=== PATIENT | male | born 2000 | race Caucasian/White ===

== ENCOUNTER → 2024-05-31 | Outpatient (CLI) | payer OTHER ==
[~2024-05-31] MED LIST: ISOVUE-370 76% 100ML VIAL As Ordered ONE
== END ==
LOC: M RAD 13:12
PROVIDERS: ATTEND Urology
DX: N50.89 Other specified disorders of the male genital organs (principal); R91.8 Other nonspecific abnormal finding of lung field
CPT/HCPCS: 71260; 74177; Q9967

== ENCOUNTER 2024-06-18 09:41 | Day surgery (SDC) | payer OTHER ==
[~2024-06-18] VITALS: Ht 152.4 cm; Wt 95.5 kg
[2024-06-18] MEDS ORDERED: LR 1,000 ML IV SCH ×2 (09:55→13:00)
[2024-06-18] MEDS ORDERED: fentaNYL 100 MCG/2 ML INJECTION As Ordered ONE (11:20)
[2024-06-18] MEDS ORDERED: KETOROLAC 60MG 2ML VIAL As Ordered ONE (11:20)
[2024-06-18] MEDS ORDERED: LIDOCAINE 2% 100MG/5ML SDV (FOR ANES.) As Ordered ONE (11:20)
[2024-06-18] MEDS ORDERED: ACETAMINOPHEN 1000MG 100ML IV BAG As Ordered ONE (11:20)
[2024-06-18] MEDS ORDERED: propofoL 200 MG/20 ML VIAL As Ordered ONE (11:20)
[2024-06-18] MEDS ORDERED: ONDANSETRON 4MG 2ML VIAL As Ordered ONE (11:20)
[2024-06-18] MEDS ORDERED: MIDAZOLAM INJ 2MG/2ML VIAL As Ordered ONE (11:21)
[2024-06-18] MEDS: ceFAZolin SOD 2 GM in IV 1 EA IV ONE (12:20)
[2024-06-18] MEDS ORDERED: dexmedeTOMIDine (4MCG/ML)200MCG/50ML BTL (PRECEDEX) As Ordered ONE (12:25)
[2024-06-18] MEDS ORDERED: GLYCOPYRROLATE INJ 0.2 MG/ML 2 ML VIAL As Ordered ONE (12:30)
[2024-06-18] MEDS: LIDOCAINE 2% MDV 20ML VIAL As Ordered ONE (12:54)
[2024-06-18] MEDS ORDERED: ONDANSETRON 4MG 2ML VIAL IV PRN (13:00)
[2024-06-18] MEDS ORDERED: oxyCODONE 5MG TAB PO PRN (13:00)
[2024-06-18] MEDS ORDERED: fentaNYL 100 MCG/2 ML INJECTION IV PRN (13:00)
[2024-06-18] MEDS ORDERED: HYDROMORPHONE HCL 0.5 MG/ 0.5 ML SYRINGE IV PRN (13:00)
[2024-06-18] MEDS ORDERED: HYDR-3713 PO (13:05)
[2024-06-18] MEDS ORDERED: CEPH500C PO (13:05)
[2024-06-18 14:00] VITALS: BP 132/91; TEMP 98.6; O2SAT 97
== END 2024-06-18 14:03 | disposition home or self-care (01) ==
LOC: M SDC 09:41
PROVIDERS: ATTEND Urology
DX: C62.91 Malignant neoplasm of right testis, unspecified whether descended or undescended (principal); F17.200 Nicotine dependence, unspecified, uncomplicated
CPT/HCPCS: 54530; 88309; J0131; J0665; J0690; J1100; J1596; J1885; J2250; J2405; J3010

== ENCOUNTER → 2024-07-04 | Outpatient (CLI) | payer OTHER ==
[~2024-07-04] VITALS: Ht 165.1 cm; Wt 95.0 kg
[~2024-07-04] MED LIST changes: +CEPH500C PO; +HYDR-3713 PO; -ISOVUE-370 76% 100ML VIAL As Ordered ONE; +LIDOCAINE 1% MDV 20ML VIAL As Ordered ONE; +MIDAZOLAM INJ 2MG/2ML VIAL As Ordered ONE; +NS 1,000 ML IV SCH; +ceFAZolin 2 GM/D5W 50 ML IV BAG As Ordered ONE; +fentaNYL 100 MCG/2 ML INJECTION As Ordered ONE
[2024-07-04 12:20] VITALS: TEMP 98
[2024-07-04] MEDS: ceFAZolin SOD 2 GM in IV 1 EA IV ONE (13:02)
[2024-07-04 14:30] VITALS: BP 126/74; O2SAT 98
== END ==
LOC: M IRPRO 12:07
PROVIDERS: ATTEND Dietitian, Registered
DX: C62.90 Malignant neoplasm of unspecified testis, unspecified whether descended or undescended (principal)
CPT/HCPCS: 36561; 99152; 99153; C1887; C1894; J0690; J1642; J2250; J3010

== ENCOUNTER → 2024-07-17 | Outpatient (CLI) | payer OTHER ==
[~2024-07-17] MED LIST changes: -LIDOCAINE 1% MDV 20ML VIAL As Ordered ONE; -MIDAZOLAM INJ 2MG/2ML VIAL As Ordered ONE; -NS 1,000 ML IV SCH; +PROHANCE 279.3MG/ML 15ML VIAL As Ordered ONE; +PROHANCE 279.3MG/ML 5ML VIAL As Ordered ONE; -ceFAZolin 2 GM/D5W 50 ML IV BAG As Ordered ONE; -fentaNYL 100 MCG/2 ML INJECTION As Ordered ONE
== END ==
LOC: M RAD 15:22
PROVIDERS: ATTEND Dietitian, Registered
DX: C62.90 Malignant neoplasm of unspecified testis, unspecified whether descended or undescended (principal)
CPT/HCPCS: 70553; A9576

== ENCOUNTER → 2024-07-19 | Outpatient (CLI) | payer OTHER ==
[~2024-07-19] MED LIST changes: -PROHANCE 279.3MG/ML 15ML VIAL As Ordered ONE; -PROHANCE 279.3MG/ML 5ML VIAL As Ordered ONE
== END ==
LOC: M CARPUL 13:43
PROVIDERS: ATTEND Internal Medicine Hematology & Oncology
DX: C62.91 Malignant neoplasm of right testis, unspecified whether descended or undescended (principal); R91.1 Solitary pulmonary nodule

== ENCOUNTER → 2024-08-03 | Outpatient (CLI) | payer OTHER | LOC: M RAD 07:28 | PROVIDERS: ATTEND Internal Medicine Pulmonary Disease | DX: Z87.09 Personal history of other diseases of the respiratory system (principal) ==

== ENCOUNTER 2024-09-10 10:54 | Emergency (ER) | payer OTHER ==
[~2024-09-10] VITALS: Ht 165.1 cm; Wt 99.2 kg
[~2024-09-10 10:54] MED LIST changes: +LIDO30CR18 TOP SA; +ONDA-84 PO; +PROC10TA5 PO
[2024-09-10] MEDS ORDERED: HYDR-4571 (11:08)
[2024-09-10 11:45] LABS: HEMATOCRIT 39.2 % (42.0-52.0); MEAN CORPUSCULAR HEMOGLOBIN 28.5 pg (27.0-33.0); MEAN CORPUSCULAR HGB CONC 35.7 g/dl (32.0-36.5); MEAN CORPUSCULAR VOLUME 79.8 fl (80.0-96.0); PLATELET COUNT, AUTOMATED 164 10^3/uL (150-450); RED BLOOD COUNT 4.91 10^6/uL (4.30-6.10); WHITE BLOOD COUNT 2.4 10^3/uL (4.0-10.0)
[2024-09-10 12:18] LABS: BLOOD UREA NITROGEN 11 MG/DL (9-23); CALCIUM LEVEL 9.1 MG/DL (8.5-10.1); CARBON DIOXIDE LEVEL 25 MMOL/L (20-31); CHLORIDE LEVEL 104 MMOL/L (98-107); CREATININE FOR GFR 1.09 MG/DL (0.70-1.30); GLOMERULAR FILTRATION RATE > 60.0 (>60); GLUCOSE, FASTING 109 MG/DL (60-100); POTASSIUM SERUM 3.9 MMOL/L (3.5-5.1); SODIUM LEVEL 139 MMOL/L (136-145)
[2024-09-10 12:46] LABS: ATYPICAL LYMPH 28 % (0-5); BASOPHILS 4 % (0-1); EOSINOPHILS 4 % (0-3); LYMPHOCYTES 44 % (16-44); MICROCYTOSIS 1+; MONOCYTES 13 % (0-5); NEUTROPHILS 5 % (28-66)
[2024-09-10 12:47] LABS: ANISOCYTOSIS 1+; PLATELET ESTIMATE NORMAL (NORMAL)
[2024-09-10 13:36] LABS: MONO REFLEX EBV COMP NEGATIVE (NEGATIVE)
[2024-09-10 14:33] LABS: ERYTHROCYTE SEDIMENTATION RATE 29 mm/hr (0-15)
[2024-09-10 14:57] LABS: C REACTIVE PROTEIN QUANTITATIV 4.55 MG/DL (<1.0)
[2024-09-10] MEDS: CIPROFLOXACIN 500MG TABLET PO ONE (15:18)
[2024-09-10] MEDS ORDERED: CIPR-249 PO (15:35)
[2024-09-10] MEDS: FILGRASTIM 480 MCG/0.8 ML SYRINGE **SC ADMINISTRATION ONLY SC SCH (15:56)
[2024-09-10] MEDS: SODIUM CHLORIDE 0.9% INJ 10 ML SYR IV PRN (15:59)
[2024-09-10 16:00] VITALS: BP 135/77; O2SAT 96
[2024-09-10 16:03] VITALS: TEMP 97
[2024-09-10 16:14] LABS: BILIRUBIN, URINE MANUAL NEGATIVE (NEGATIVE); BLOOD URINE MANUAL NEGATIVE (NEGATIVE); GLUCOSE, URINE (UA) MANUAL NEGATIVE (NEGATIVE); KETONE, URINE MANUAL NEGATIVE (NEGATIVE); LEUKOCYTE ESTERASE, URINE MAN NEGATIVE (NEGATIVE); NITRITE, URINE MANUAL NEGATIVE (NEGATIVE); SPECIFIC GRAVITY,URINE MANUAL 1.015 (1.002-1.035); UROBILINOGEN, URINE MANUAL NORMAL (NORMAL)
[2024-09-10 16:15] LABS: APPEARANCE, URINE MANUAL CLEAR (CLEAR); COLOR, URINE MANUAL LT YELLOW (YELLOW)
[2024-09-10 16:25] LABS: MUCUS, URINE SMALL AMOUNT (NEGATIVE); RBC, URINE NONE SEEN /hpf (0-3); SQUAMOUS EPITHELIAL CELL URINE SMALL AMOUNT /hpf (SMALL AMT)
[2024-09-11] MEDS ORDERED: SODIUM CHLORIDE 0.9% INJ 10 ML SYR IV SCH (09:00)
[2024-09-13 10:41] LABS: EBV AB TO NUCLEAR ANTIGEN < 18.00 U/mL (<18.00); EBV VIRAL CAPSID AG IGG < 18.00 U/mL (<18.00); EBV VIRAL CAPSID AG IGM < 36.00 U/mL (<36.00)
== END 2024-09-10 16:14 | disposition home or self-care (01) ==
LOC: M ED 10:54
DX: D70.8 Other neutropenia (principal); R50.9 Fever, unspecified; C62.90 Malignant neoplasm of unspecified testis, unspecified whether descended or undescended; Z92.21 Personal history of antineoplastic chemotherapy
CPT/HCPCS: 71046; 80048; 81000; 84145; 85025; 85652; 86140; 86308; 86664; 86665; 87040; 87086; 87486; 87581; 87633; 87798; 93041; 96372; 99285; J1442; J1642

== ENCOUNTER → 2025-02-01 | Outpatient (CLI) | payer OTHER ==
[~2025-02-01] MED LIST changes: +ALBU8.5H; +CIPR-249 PO; +HYDR-4571
== END ==
LOC: M RAD 09:20
PROVIDERS: ATTEND Internal Medicine Medical Oncology
DX: C62.91 Malignant neoplasm of right testis, unspecified whether descended or undescended (principal)